=== PATIENT | female | born 1980 | race Caucasian/White ===

== ENCOUNTER 2022-09-05 13:59 | Emergency (ER) | payer OTHER, SELFPAY ==
[2022-09-05 14:01] VITALS: BP 132/82; PULSE 89; RESP 18; TEMP 36.7; O2SAT 97; BMI 24.7
--- NOTE | 2022-09-05 14:57 | ED.VIS.FEGU ---
HPI <MARY LOU Vitale - Last Filed: 09/05/22 17:05> HPI - Female History of Present Illness Chief Complaint: Vag Bleeding Narrative Narrative: Patient presenting today due to increased vaginal bleeding over the past 11 days as well as passing a large blood clot this morning that was the size of her palm. She states that since December of last year she has had increased vaginal bleeding during her menstrual periods. She has seen her DISPATCH COORDINATOR for this and 10 days ago started taking oral contraceptives to help regulate the bleeding. She also has recently been put on Torexamic acid to help with the bleeding which does help. She called her DISPATCH COORDINATOR this morning in regards to the large blood clot that she passed and was told to come into the emergency department for evaluation. States that she generally does pass blood clots during her menstrual period but never that large. She denies any fever, chills, being , abdominal pain, pelvic pain, nausea, and vomiting. She also reports a history of endometriosis. PFSH <MARY LOU Vitale - Last Filed: 09/05/22 17:05> PFSH Medical History no medical history Allergy/AdvReac Type Severity Reaction Status Date / Time No Known Allergies Allergy Verified 09/05/22 16:28 Social History Smoking Status: Unknown if ever smoked ROS <MARY LOU Vitale - Last Filed: 09/05/22 17:05> ROS ED Constitutional Constitutional ED: Denies chills or fever(s) Cardiovascular Cardiovascular: Denies chest pain or palpitations Respiratory/Chest Respiratory/Chest: Denies cough or dyspnea Gastrointestinal Gastrointestinal: Denies abdominal pain, nausea or vomiting Genitourinary Genitourinary ED: Denies dysuria, hematuria or urinary urgency Musculoskeletal Musculoskeletal: Denies arthralgias or myalgias Integumentary Denies abscess, Abrasions or rash Neurologic Neurologic: Denies confusion, dizziness or paresthesias Psychiatric Psychiatric: Denies anxiety or depression EXAM <MARY LOU Vitale - Last Filed: 09/05/22 17:05> Physical Exam Const Vital Signs: 09/05/22 14:01 Temperature 98.1 F Temperature Source Temporal Pulse Rate 89 Respiratory Rate 18 Blood Pressure 132/82 H Blood Pressure Mean 98 Pulse Ox 97 Oxygen Delivery Method Room Air <Dr. Chaipto Decker DO - Last Filed: 09/05/22 16:05> Physical Exam Const Vital Signs: 09/05/22 14:01 Temperature 98.1 F Temperature Source Temporal Pulse Rate 89 Respiratory Rate 18 Blood Pressure 132/82 H Blood Pressure Mean 98 Pulse Ox 97 Oxygen Delivery Method Room Air MDM <MARY LOU Vitale - Last Filed: 09/05/22 17:05> [facility] Narrative Medical decision making narrative: Patient presenting due to increased bleeding during her menstrual period that she has had since December. However, she passed a large clot today which is what prompted her to come into the ED. She is seeing her DISPATCH COORDINATOR for this issue and was recently started on oral control. She is well-appearing and in no acute distress. Labs will be obtained to rule out leukocytosis, anemia, electrolyte abnormality. Her H&H is 11.3 and 35. There is no UTI and her test is negative. Her menorrhagia is being treated by her DISPATCH COORDINATOR, she will be discharged home in stable condition to follow-up with them. She has been given return instructions and is comfortable with plan. Lab Data Attestation: I reviewed the patient's lab results. Labs: Laboratory Results - last 24 hr 09/05/22 09/05/22 09/05/22 15:05 15:05 15:20 WBC 4.5 RBC 3.90 L Hgb 11.3 L Hct 35.0 L MCV 89.7 MCH 29.0 MCHC 32.3 RDW Std Deviation 41.5 RDW Coeff of Ming 12.7 Plt Count 296 MPV 8.8 Immature Gran % (Auto) 0.200 Neut % (Auto) 50.5 Lymph % (Auto) 31.5 [place] % (Auto) 13.6 H Eos % (Auto) 2.9 Baso % (Auto) 1.3 H Absolute Neuts (auto) 2.3 Absolute Lymphs (auto) 1.41 Nucleated RBC % 0 Sodium 139 Potassium 3.9 Chloride 105 Carbon Dioxide 27.0 Anion Gap 7 BUN 16 Creatinine 0.90 Estim Creat Clear Calc 65.72 Est GFR (MDRD) Af Amer 89 Est GFR (MDRD) Non-Af 74 BUN/Creatinine Ratio 17.8 Glucose 100 Calcium 9.1 Urine Color Yellow Urine Clarity Clear Urine pH 7.0 Ur Specific Gordon 1.015 Urine Protein 15 H Urine Glucose (UA) Normal Urine Ketones Negative Urine Occult Blood 25 H Urine Nitrite Negative Urine Bilirubin Negative Urine Urobilinogen Normal Ur Leukocyte Esterase Negative Urine RBC 0 SEEN Urine WBC 0 SEEN Ur Squamous Epith Cells 0 SEEN Amorphous Sediment 1+ Urine Bacteria 0 SEEN Urine Mucus 0 SEEN Urine Test Negative <Dr. Chapito Decker, DO - Last Filed: 09/05/22 16:05> [facility] Lab Data Labs: Laboratory Results - last 24 hr 09/05/22 09/05/22 09/05/22 15:05 15:05 15:20 WBC 4.5 RBC 3.90 L Hgb 11.3 L Hct 35.0 L MCV 89.7 MCH 29.0 MCHC 32.3 RDW Std Deviation 41.5 RDW Coeff of Ming 12.7 Plt Count 296 MPV 8.8 Immature Gran % (Auto) 0.200 Neut % (Auto) 50.5 Lymph % (Auto) 31.5 [place] % (Auto) 13.6 H Eos % (Auto) 2.9 Baso % (Auto) 1.3 H Absolute Neuts (auto) 2.3 Absolute Lymphs (auto) 1.41 Nucleated RBC % 0 Sodium 139 Potassium 3.9 Chloride 105 Carbon Dioxide 27.0 Anion Gap 7 BUN 16 Creatinine 0.90 Estim Creat Clear Calc 65.72 Est GFR (MDRD) Af Amer 89 Est GFR (MDRD) Non-Af 74 BUN/Creatinine Ratio 17.8 Glucose 100 Calcium 9.1 Urine Color Yellow Urine Clarity Clear Urine pH 7.0 Ur Specific Gordon 1.015 Urine Protein 15 H Urine Glucose (UA) Normal Urine Ketones Negative Urine Occult Blood 25 H Urine Nitrite Negative Urine Bilirubin Negative Urine Urobilinogen Normal Ur Leukocyte Esterase Negative Urine RBC 0 SEEN Urine WBC 0 SEEN Ur Squamous Epith Cells 0 SEEN Amorphous Sediment 1+ Urine Bacteria 0 SEEN Urine Mucus 0 SEEN Urine Test Negative Treatment and Re-Evaluation Narrative: I have personally performed a face to face assessment of the patient and have reviewed the PETER Note. I performed a substantive portion of the visit including all aspects of the following. My cuevas findings include: History: Patient presents with heavy vaginal bleeding for the past couple days. Patient states she has had a history of heavy menstrual periods for the last few months. Patient states her DISPATCH COORDINATOR has started her on control medicine for this. Patient states she has been taking this as prescribed for the past couple months. Patient states that today she started passing some heavy clots. Patient denies any fevers or chills. Patient denies any nausea or vomiting. Patient denies any back pain. Patient denies any chance of . Exam: Vital signs are stable. Patient is afebrile. Patient is in no acute distress. Oral mucosa is pink and moist. Neck is supple. Trachea is midline. There is no JVD. Heart was regular rate and rhythm. Lungs are clear and equal bilaterally. Abdomen is soft and nontender. Cranial nerves II through XII are intact. There are no focal motor or sensory deficits noted. Medical Decision Making: Differential diagnosis includes menorrhagia, anemia, urinary tract infection, and ectopic . CBC will be obtained to assess for leukocytosis and anemia. Basic metabolic profile will be obtained to assess for electrolyte abnormality and renal function. Urinalysis will be obtained to assess for urinary tract infection and hematuria. Urine hCG will be obtained to assess for . CBC was reviewed. There is a slight anemia with a hemoglobin of 11.3 and hematocrit of 35.0. Basic metabolic profile was reviewed and was within normal limits. Urinalysis was reviewed. Urine occult blood was 25. Leukocyte esterase was negative. There were 0 red blood cells seen and 0 white blood cells seen. Urine hCG was reviewed and was negative. Patient was advised of her findings. Patient was instructed to continue her control medication as previously prescribed. Patient was instructed to follow-up with her DISPATCH COORDINATOR in 5 to 7 days. Patient understood and was agreeable with the plan. All questions were answered. Discharge Plan Triage Chief Complaint: Vag Bleeding ED Midlevel Provider: Leanna Hebert ED Provider: Chapito Decker Dx/Rx/DC Orders Clinical Impression: Menorrhagia Instructions: ED Heavy Menstrual Bleeding Primary Care Provider: Ramesh Smallwood Referrals: Ramesh Smallwood MD [Primary Care Provider] - Activity Restrictions/Additional Instructions: Please follow-up with your DISPATCH COORDINATOR early next week. Please return for any worsening of your symptoms. Disposition Disposition: Home, Self Care Discharge Date/Time: 09/05/22 16:32
[2022-09-05 15:21] LABS: Absolute Lymphocyte Count 1.41 X10^3/uL (0.83-4.51); Absolute Neutrophil Count 2.3 X10^3/uL (2.0-7.7); Basophil# 0.06 X10^3/uL; Basophil% 1.3 % (0-1); Eosinophil# 0.13 X10^3/uL; Eosinophils% 2.9 % (0-5); Hemoglobin 11.3 g/dL (12.0-15.0); Lymphocyte # 1.41 X10^3/ul (0.83-4.51); Lymphocyte % 31.5 % (19-41); Mean Corp Hgb Conc 32.3 g/dL (32-36); Mean Corpuscular Volume 89.7 fL (81-99); Mean Platelet Vol. 8.8 fl (6.2-12.0); Monocyte# 0.61 X10^3/uL; Monocyte% 13.6 % (0-10); NRBC Flagged by Analyzer 0 % (0-5); Neutrophil # 2.26 X10^3/uL (2.7-7.7); Neutrophil % 50.5 % (47-70); Platelet Count 296 K/mm3 (150-450); RBC Distribution Width CV 12.7 % (11.6-14.6); RBC Distribution Width SD 41.5 fl (35.1-43.9); White Blood Count 4.5 K/mm3 (4.4-11.0)
[2022-09-05 15:29] LABS: Anion Gap 7 (5-15); BUN 16 mg/dL (7-18); BUN/Creat Ratio 17.8 RATIO (10-20); Calcium,Total 9.1 mg/dL (8.5-10.1); Chloride 105 mmol/L (98-107); EST Glomerular Filtration Rate 74 mL/min (>60); Est Glom Filt Rate - Afr Amer 89 mL/min (>60); Estimated Creatinine Clearance 65.72 ml/min; Glucose 100 mg/dL (74-106); Potassium 3.9 mmol/L (3.5-5.1); Sodium Level 139 mmol/L (136-145)
[2022-09-05 15:37] LABS: Bacteria 0 SEEN /hpf (None Seen); Mucous, Urine 0 SEEN /hpf (<or=2+); Red Blood Cells-Urine 0 SEEN /hpf (0-5); Squamous Epithelial Cells - UA 0 SEEN /hpf (5-10); White Blood Cells 0 SEEN /hpf (0-5)
[2022-09-05 15:43] LABS: Color, Urine Yellow (Yellow); Glucose, Dipstick Normal (Normal); Ketone-Dipstick Negative (Negative); Leukocyte Esterase-Dipstick Negative /ul (Negative); Nitrite-Dipstick Negative (Negative); Occult Blood-Urine 25 /ul (Negative); Protein-Dipstick 15 mg/dl (Negative); Specific Gravity, Urine 1.015 (1.002-1.030); Urine Bilirubin Dipstick Negative (Negative); Urine Clarity Clear (Clear); Urine Urobilinogen Normal (Normal)
[2022-09-05 15:57] LABS: Amorphous Sediment 1+; Internal QC Validated? YES +Cl - CLEAR BKGD; Pregnancy, Urine Negative Negative
== END 2022-09-05 16:32 | disposition home or self-care (01) ==
PROVIDERS: Physician Assistant; Emergency Provider Emergency Medicine; PCP Family Medicine; Visit Provider Emergency Medicine
DX: N93.9 Abnormal uterine and vaginal bleeding, unspecified (principal); N92.0 Excessive and frequent menstruation with regular cycle
CPT/HCPCS: 80048; 81001; 81025; 85025; 99283; A4216